=== PATIENT | male | born 1970 | race Caucasian/White ===

== ENCOUNTER 2019-10-07 12:18 | Emergency (ER) | payer BC ==
[~2019-10-07] VITALS: Ht 193 cm; Wt 129.3 kg
[2019-10-07 12:27] VITALS: BP 131/71
[2019-10-07] MEDS ORDERED: FLUORESCEIN SODIUM OPHTH 1 EA STRIP ONE (12:29)
== END 2019-10-07 12:35 | disposition home or self-care (01) ==
LOC: ER 12:18
DX: H11.33 Conjunctival hemorrhage, bilateral (principal); E11.9 Type 2 diabetes mellitus without complications